=== PATIENT | male | born 1980 ===

== ENCOUNTER 2020-07-27 14:00 | Emergency (ER) | payer SELFPAY ==
[~2020-07-27] VITALS: Ht 180.3 cm; Wt 99.8 kg
[2020-07-27 14:56] LABS: Albumin 4.5 g/dL (3.4-5.0); Calcium 10.2 mg/dL (8.5-10.1); Potassium 3.8 mmol/L (3.5-5.1)
[2020-07-27 14:59] LABS: BUN/Creatinine Ratio 25.6; Total Protein 8.1 g/dL (6.4-8.2)
[2020-07-27] MEDS ORDERED: ONDANSETRON ODT 4 MG TAB PO ONE (15:00)
[2020-07-27 15:22] LABS: Urine Bacteria NONE SEEN /hpf (None Seen); Urine Blood Negative /uL (Negative); Urine Specific Gravity 1.026 (1.001-1.035); Urine WBC 1 /hpf (0 - 3)
[2020-07-27 15:32] LABS: Alcohol, Urine < 3.0 mg/dL (0-10); Amphetamine Screen, Urine NEGATIVE (NEGATIVE); Barbiturate Scree,Urine NEGATIVE (NEGATIVE); Benzodiazephine Screen, Urine NEGATIVE (NEGATIVE); Cannabinoid Screen, Urine POSITIVE (NEGATIVE); Cocaine Screen, Urine NEGATIVE (NEGATIVE); Opiate Scree,Urine NEGATIVE (NEGATIVE); Phencyclidine Screen, Urine NEGATIVE (NEGATIVE)
[2020-07-27] MEDS ORDERED: cloNIDine HCL 0.1 MG TAB ONE (16:06)
[2020-07-27 16:10] VITALS: BP 169/113
[2020-07-27] MEDS ORDERED: cloNIDine HCL 0.1 MG TAB PO ONE (16:15)
[2020-07-27 16:37] LABS: Basophils # (auto) 0 10 ^3/uL (0-0.2); Basophils % (auto) 0.4 % (0.0-2.0); Eosinophils # (auto) 0 10 ^3/uL (0-0.8); Eosinophils % (auto) 0.1 % (0.0-7.0); Hematocrit 40.1 % (41.0-53.0); Lymphocytes # (auto) 0.6 10 ^3/uL (0.4-5.4); Lymphocytes % (auto) 5.6 % (10.0-50.0); Mean Corpuscular Hemoglobin 30.1 pg (28.0-32.0); Mean Corpuscular Hgb Conc. 34.9 g/dL (32.0-36.0); Mean Corpuscular Volume 86.2 fL (80.0-100.0); Monocytes # (auto) 0.3 10 ^3/uL (0-1.3); Monocytes % (auto) 2.8 % (0.0-12.0); Neutrophils # (auto) 9.7 10 ^3/uL (1.6-8.6); Neutrophils % (auto) 91.1 % (37.0-80.0); Red Blood Cells 4.65 10^6/uL (4.5-5.90); White Blood Cell 10.6 10^3/uL (4.4-10.8)
== END 2020-07-27 16:14 | disposition home or self-care (01) ==
LOC: ER 14:00
DX: R53.1 Weakness (principal); F12.10 Cannabis abuse, uncomplicated; M10.9 Gout, unspecified; F17.210 Nicotine dependence, cigarettes, uncomplicated
CPT/HCPCS: 36415; 80053; 80307; 81001; 85025; 93005; 99284; Q0162